=== PATIENT | male | born 1980 | race Caucasian/White ===

== ENCOUNTER 2016-11-11 20:19 | Emergency (ER) | payer OTHER ==
[~2016-11-11] VITALS: Ht 188 cm; Wt 75.6 kg
[~2016-11-11 20:19] MED LIST: CELEXA20 MG PO; CITALOPRAM HBR20 MG PO; NO HOME MEDS; PRILOSEC40 MG PO
[2016-11-11] MEDS ORDERED: OMEPRAZOLE40 M1 PO (20:54)
[2016-11-11] MEDS ORDERED: ZANTAC150 MG PO (20:54)
[2016-11-11 21:09] VITALS: BP 156/89
== END 2016-11-11 21:10 | disposition home or self-care (01) ==
LOC: EME 20:19
DX: K29.70 Gastritis, unspecified, without bleeding (principal); Z87.11 Personal history of peptic ulcer disease
CPT/HCPCS: 80048; 80076; 81003; 83690; 85027; 99281; 99284